=== PATIENT | female | born 1970 | race Caucasian/White ===

== ENCOUNTER 2021-06-15 08:06 | Emergency (ER) | payer OTHER ==
[~2021-06-15] VITALS: Ht 172.7 cm; Wt 114.8 kg
[2021-06-15 08:32] VITALS: BP 133/83
--- NOTE | 2021-06-15 09:44 | NUR ---
novel swab done. walked to lab.
[2021-06-15 11:00] VITALS: BP 133/83
--- NOTE | 2021-06-15 11:00 | NUR ---
Patient discharged with v/s stable. Written and verbal after care instructions given and explained. Patient verbalized understanding. Ambulatory with steady gait. All questions addressed prior to discharge. Advised to follow up with PMD.
== END 2021-06-15 11:00 | disposition home or self-care (01) ==
LOC: MED 08:06
DX: U07.1 COVID-19 (principal)
CPT/HCPCS: 71045; 99284; U0003